=== PATIENT | female | born 1995 | race American Indian/Alaskan Native ===

== ENCOUNTER 2018-05-28 03:39 | Inpatient (IN) | payer OTHER ==
[2018-05-28] MEDS ORDERED: SUBLIMAZE IV PRN (06:15)
--- NOTE | 2018-05-28 06:25 | History and Physical Report ---
History of Present Illness Date of examination: 05/28/18 (pt presented to Triage with ctx) Date of admission: 05/28/18 05:35 History of present illness: EDC Confirmation: 05/23/2018 Gestational Age: 21 4/7 weeks Past History : 2 Term Births: 1 Premature Births: 0 Living Children: 1 Para: 1 Mult. Births: 0 Prev : 0 Prev. attempt? none Aborta: 0 Elect. Ab: 0 Spont. Ab: 0 Ectopics: 0 # 1 Delivery date: 03/04/2013 Weeks Gestation: 41 Delivery type: vac Hours of labor: 12 Anesthesia type: epidural Delivery location: [facility] [place] Infant Sex: Female weight: 6-15 Name: Emery Comments: Postdate induction Past Medical History: Asthma Past Surgical History: Negative Past Surgical History Family History Summary: Other family member - Has No Family History of Ovarvian Cancer - Entered On: 06/2018 Other family member - Has No Family History of Colon Cancer - Entered On: 2017 Other family member - Has No Family History of Breast Cancer - Entered On: 2017 Other family member - Has Family History of Diabetes - Entered On: 01/14/2018 Social History: Marital Status: Single/engaged Children: 1 Occupation: Student [employer] Risk Factors: Smoked Tobacco Use: Never smoker Drug use: no Alcohol use: no Dietary Counseling: pn yes Past Medical History Surgery (Non-solid waste analyst): Negative Past Surgical History Abnormal PAP: negative Uterine Anomaly: negative Social Hx: Marital Status: Single/engaged Children: 1 Occupation: Student [employer] Infection History Hx of STD: HSV 2 Personal hx. of genital herpes: yes Partner hx. of genital herpes: yes Genetic History Congenital Heart Defect: Mom: no Dad: no Catracho Disease: Mom: no Dad: no Thalassemia Mom: no Dad: no Neural Tube Defect Mom: no Dad: no Down's Syndrome Mom: no Dad: no Brody-Sachs Mom: no Dad: no Sickle Cell Disease/Trait Mom: no Dad: no Hemophilia Mom: no Dad: no Muscular Dystrophy Mom: no Dad: no Cystic Fibrosis Mom: no Dad: no [place] Chorea Mom: no Dad: no Mental Retardation Mom: no Dad: no Fragile X Mom: no Dad: no Other Genetic/Chromosomal Disorder Mom: no Dad: no Child w/other defect Mom: no Dad: no Enviromental Exposures Xray Exposure: no Medication, drug, or alcohol use since LMP: no Chemical/Other Exposure: no Exposure to Cat Liter: no Hx of Parvovirus (Fifth Disease): no Current Allergies (reviewed today): No known allergies Past History - Obstetrical History Expected Date of Delivery: 05/23/18 Actual Gestation: 40 Week(s) 5 Day(s) : 2 Para: 1 Hx # Term Pregnancies: 1 Number of Living Children: 1 Medications and Allergies Allergies Allergy/AdvReac Type Severity Reaction Status Date / Time No Known Allergies Allergy Unverified 05/28/18 03:57 Home Medications Medication Instructions Recorded Confirmed Last Taken Type Vits96/Iron Fum/Folic 1 tab PO QDAY 05/28/18 05/28/18 05/27/18 10:00 History [ Tablet] valACYclovir [Valtrex] 1 tab PO QDAY 05/28/18 05/28/18 05/27/18 10:00 History 1 tab Active Meds: Active Medications Fentanyl (Sublimaze) 100 mcg IV Q2H PRN PRN Reason: Labor Pain Lactated Ringer's (Lactated Ringers) 1,000 mls @ 125 mls/hr IV DIRECT MINH Oxytocin/Sodium Chloride (Pitocin/Ns 20 Unit/1000ml Drip) 20 units in 1,000 mls @ 125 mls/hr IV DIRECT MINH - Vital Signs Vital signs: Vital Signs Pulse BP 76 132/82 05/28/18 03:57 05/28/18 03:57 Temp Pulse Resp BP Pulse Ox 82 132/63 05/28/18 06:08 05/28/18 06:08 - Physical Exam Breasts: Positive: deferred Cardiovascular: Regular rate, Normal S1, Normal S2 Lungs: Positive: Normal air movement Abdomen: Positive: normal appearance, soft, normal bowel sounds. Negative: distention, tenderness Genitourinary (Female): Positive: normal external genitalia Vulva: both: normal Vagina: Positive: normal moisture. Negative: discharge Cervix: Negative: lesion, discharge Uterus: Positive: normal size, normal contour Adnexa: both: normal Anus/Rectum: Positive: normal perianal skin, heme negative. Negative: rectal mass, hemorrhoids Extremities: Positive: normal Deep Tendon Reflex Grade: Normal +2 - Obstetrical FHR: category 1 Uterine Contraction Monitor Mode: External Cervical Dilatation: 3 (per engineer byproduct) Cervical Effacement Percentage: 90 station: -1 Uterine Contraction Pattern: Regular Uterine Tone Measurement Phase: Resting Uterine Contraction Intensity: Mild Results All other labs normal. Strep Gp B SILVIA Negative 04-19-18 HBsAg Screen Negative Negative *1 RPR Non Reactive Non Reactive *2 Rubella Antibodies, IgG 4.30 index Immune >0.99 *3 Non-immune <0.90 Equivocal 0.90 - 0.99 Immune >0.99 ABO Grouping O Rh Factor Negative Rhogam give 03-26-18 Tests: (2) Ab Scr+Antibody ID ([id number]) ! Antibody Screen Negative Negative *7 An antibody identification panel was non-reactive. There was no evidence of the presence of atypical red cell antibody. Tests: (3) Profile I ([id number]) WBC 7.7 x10E3/uL 3.4-10.8 *12 RBC [L] 3.68 x10E6/uL 3.77-5.28 *13 Hemoglobin [L] 9.4 g/dL 11.1-15.9 *14 Hematocrit [L] 28.9 % 34.0-46.6 *15 MCV 79 fL 79-97 *16 MCH [L] 25.5 pg 26.6-33.0 *17 MCHC 32.5 g/dL 31.5-35.7 *18 RDW 13.7 % 12.3-15.4 *19 Platelets 203 x10E3/uL 150-379 *20 Neutrophils 68 % Not Estab. *21 Lymphs 22 % Not Estab. *22 Monocytes 9 % Not Estab. *23 Eos 1 % Not Estab. *24 Basos 0 % Not Estab. *25 ! Immature Cells <No Reported Value> *26 Neutrophils (Absolute) 5.2 x10E3/uL 1.4-7.0 *27 Lymphs (Absolute) 1.7 x10E3/uL 0.7-3.1 *28 Monocytes(Absolute) 0.7 x10E3/uL 0.1-0.9 *29 Eos (Absolute) 0.0 x10E3/uL 0.0-0.4 *30 Baso (Absolute) 0.0 x10E3/uL 0.0-0.2 *31 ! Immature Granulocytes 0 % Not Estab. *32 ! Immature Grans (Abs) 0.0 x10E3/uL 0.0-0.1 *33 ! NRBC <No Reported Value> *34 Hematology Comments: <No Reported Value> *35 Tests: (4) Cystic Fibrosis Profile ([id number]) ! CF, Screen Comment: *36 RESULTS: Negative for 32 mutations analyzed Tests: (5) HB Solu + Rflx Frac ([id number]) Hemoglobin (Hgb) Solubility Negative Negative *38 Tests: (6) Panel [id number] ([id number]) HIV Screen 4th Generation wRfx Non Reactive Non Reactive *39 Tests: (7) Gest. Diabetes 1-Hr Screen ([id number]) ! Gestational Diabetes Screen 80 mg/dL 65-139 *40 According to ADA, a glucose threshold of >139 mg/dL after 50-gram load identifies approximately 80% of women with gestational diabetes mellitus, while the sensitivity is further increased to approximately 90% by a threshold of >129 mg/dL. Tests: (8) HCV Ab w/Rflx to Verification ([id number]) ! HCV Ab <0.1 s/co ratio 0.0-0.9 *41 Tests: (9) Comment: ([id number]) ! Comment: SPRCS *42 Non reactive HCV antibody screen is consistent with no HCV infection, Assessment and Plan 22yo @ 40 weeks presented to Triage 3cm after reactive FMstrip Pt OOB to walk, vomited while walking, re-examined by RN Fully dilated. I was notified. Orders are in EMR GBS negative.
[2018-05-28 06:27] LABS: Hematocrit 38.5 % (30.3-42.9); Mean Corpuscular HGB Conc 31 % (30-34); Mean Corpuscular Hemoglobin 26 pg (28-32); Mean Corpuscular Volume 84 fl (79-97); Platelet Count 154 K/mm3 (140-440); Red Blood Count 4.59 M/mm3 (3.65-5.03); Red Cell Distribution Width 18.4 % (13.2-15.2)
[2018-05-28] MEDS ORDERED: DULCOLAX PR PRN (06:30)
[2018-05-28] MEDS ORDERED: NORCO 5/325 PO PRN (06:30)
[2018-05-28] MEDS ORDERED: BENADRYL PO PRN (06:30)
[2018-05-28] MEDS ORDERED: DERMOPLAST TP PRN (06:30)
[2018-05-28] MEDS ORDERED: MILK OF MAGNESIA PO PRN (06:30)
[2018-05-28] MEDS ORDERED: TUCKS PAD TP PRN (06:30)
[2018-05-28] MEDS ORDERED: ZOFRAN IV PRN (06:30)
[2018-05-28] MEDS ORDERED: LANSINOH TP PRN (06:30)
[2018-05-28] MEDS ORDERED: PHENERGAN PO PRN (06:30)
[2018-05-28] MEDS ORDERED: TYLENOL PO PRN (06:30)
--- NOTE | 2018-05-28 06:42 | Procedure Note ---
OB Delivery Note - Delivery Date of Delivery: 05/28/18 Cutter Operator: HENRY KHAN Estimated blood loss: 300cc - Vaginal Delivery presentation: vertex Delivery position: OA Intrapartum events: precipitous labor- <3hr Delivery induction: none Delivery monitor: external FHT, external uterine Route of delivery: Delivery placenta: spontaneous Delivery cord: nuchal cord, 3 umbilical vessels Episiotomy: none Delivery laceration: 1st degree (no repair ) Anesthesia: none Delivery comments: Received an urgent call from harvest supervisor that pt was now complete. Pt in LDR 9 on my arrival SVE C,C,0 BBOW live born male over intact perineum. CAN X 1 reduced. Baby to mom's abdomen skin to skin. Cord blood obtained. Placenta delivered complete and intact, 3 vessel cord. Pitocin IM. 1st degree laceration, hemostasis no repair done. 8/9, EBL 300, Wgt 7-7 Mom and baby remain LDR stable. - Infant A at 1 minute: 8 at 5 minutes: 9 Gender: Male (wgt 7-7)
[2018-05-28] MEDS ORDERED: PITOCin/NS 20 UNIT/1000ML DRIP 20 UNITS/1,000 ML BAG IV SCH (07:00)
[2018-05-28] MEDS ORDERED: LACTATED RINGERS 1,000 ML IV SCH (07:00)
[2018-05-28] MEDS ORDERED: SODIUM CHLORIDE FLUSH SYRINGE 10 ML IV NR (07:00)
[2018-05-28] MEDS ORDERED: VALTREX PO SCH (10:00)
[2018-05-28] MEDS: MOTRIN PO SCH ×2 (15:24→23:37)
[2018-05-28 18:39] LABS: Hematocrit 35.1 % (30.3-42.9)
--- NOTE | 2018-05-29 05:57 | Discharge Summary ---
Providers - Providers Date of Admission: 05/28/18 05:35 Date of discharge: 05/29/18 (pt desires d/c today) Attending physician: CHANELL PALOMINO Primary care physician: CHANELL PALOMINO Hospitalization Reason for admission: active labor Delivery: Episiotomy: none Laceration: 1st degree Incision: normal Other procedures: none complications: none Discharge diagnosis: IUP at term delivered [place] baby: male Hospital course: uncomplicated vaginal delivery Pt awake tending to NB No c/o voiced VSS FF below umb Lochia small perineum minimal swelling intact. H&H Stable Doing well s/p vag delivery P: d/c today with instructions RTO 4 weeks PP care. Pt desires DEPO for BC Condition at discharge: Good Disposition: DC-01 TO HOME OR SELFCARE - Discharge Diagnoses (1) Spontaneous vaginal delivery Status: Acute Comment: RTO 4weeks PP care Plan - Discharge Medications Prescriptions: Ibuprofen [Motrin 800 MG tab] 800 mg PO TID PRN #30 tablet PRN Reason: Pain Lidocain2.5%/Prilocai2.5% [Emla] 5 gm TP PRN #1 tube - Provider Discharge Summary Activity: routine, no sex for 6 weeks, no heavy lifting 4 weeks, no strenuous exercise Diet: routine Instructions: routine Additional instructions: [] Smoking cessation referral if applicable(refer to patient education folder for contact #) [] Refer to [facility] Booklet Call your doctor immediately for: * Fever > 100.5 * Heavy vaginal bleeding ( >1 pad per hour) * Severe persistent headache * Shortness of breath * Reddened, hot, painful area to leg or breast * Drainage or odor from incision. * Keep incision clean and dry at all times and follow doctor's instructions regarding bathing/showering - Follow up plan Follow up: CHANELL PALOMINO MD [Primary Care Provider] - 07/01/18 (Congratulations! Please call [phone] to schedule your visit in 4 weeks. Take medication as prescribed. Call with any concerns.)
[2018-05-29] MEDS ORDERED: M-M-R II VACCINE SUB-Q ONE (06:00)
[2018-05-29] MEDS ORDERED: BOOSTRIX IM ONE (06:00)
[2018-05-29] MEDS: MOTRIN PO SCH ×2 (06:05→12:20)
[2018-05-29] MEDS ORDERED: DEPO-PROVERA (CONTRACEPTION) IM ONE ×2 (06:15→11:00)
[2018-05-29 14:14] VITALS: BP 119/76
== END 2018-05-29 13:20 | disposition home or self-care (01) | DRG 775 ==
LOC: TRG 03:39 → LD 05:35 → OB 09:22
PROVIDERS: ADMIT Obstetrics & Gynecology; ATTEND Obstetrics & Gynecology
PROC: 10E0XZZ Delivery of Products of Conception, External Approach (ICD-10-PCS; principal; 2018-05-28)
PROC: 3E0334Z Introduction of Serum, Toxoid and Vaccine into Peripheral Vein, Percutaneous Approach (ICD-10-PCS; 2018-05-28)
DX: O62.3 Precipitate labor (principal); O69.81X0 Labor and delivery complicated by cord around neck, without compression, not applicable or unspecified; O70.0 First degree perineal laceration during delivery; Z3A.40 40 weeks gestation of pregnancy; Z37.0 Single live birth; Z23 Encounter for immunization
CPT/HCPCS: 36415; 85014; 85018; 85027; 85461; 86592; 86850; 86870; 86900; 86901; 99211; G0463; J1050; J2590; J2790